=== PATIENT | female | born 1965 | race African-American/Black ===

== ENCOUNTER 2017-02-26 07:56 | Day surgery (SDC) | payer OTHER ==
[~2017-02-26] VITALS: Ht 167.6 cm; Wt 79.4 kg
[2017-02-26] MEDS ORDERED: ASPI-1159 PO (09:41)
[2017-02-26] MEDS ORDERED: IOHEXOL-300 100 ML BOTTLE ONE (12:57)
[2017-02-26] MEDS ORDERED: FENTANYL CITRATE/PF 50MCG/ML 2ML VIAL ONE (12:57)
[2017-02-26] MEDS ORDERED: NICARDIPINE 100MCG/ML 10ML VIAL (CATH LAB) IV ONE (12:57)
[2017-02-26] MEDS ORDERED: HEPARIN SODIUM 1,000 UNIT/1ML VIAL IV ONE (12:57)
[2017-02-26] MEDS ORDERED: NITROGLYCERIN 50MCG/ML 10ML VIAL (CATH LAB) IV ONE (12:57)
[2017-02-26] MEDS ORDERED: MIDAZOLAM HCL 2 MG/2 ML VIAL ONE ×2 (12:57→13:23)
[2017-02-26] MEDS ORDERED: LIDOCAINE HCL 1% 20ML VIAL (Pyxis) INJ ONE (12:58)
[2017-02-26] MEDS ORDERED: HEPARIN 1,000 UNITS PREMIX 0 ML IV ONE (12:58)
[2017-02-26] MEDS ORDERED: HYDROMORPHONE HCL/PF 2MG/ML (OR) ONE (13:09)
== END 2017-02-26 17:20 | disposition home or self-care (01) ==
LOC: CCL 07:56
PROVIDERS: ATTEND Specialist
DX: I20.9 Angina pectoris, unspecified (principal); I10 Essential (primary) hypertension; E78.5 Hyperlipidemia, unspecified; Z86.73 Personal history of transient ischemic attack (TIA), and cerebral infarction without residual deficits; Z88.6 Allergy status to analgesic agent; Z88.8 Allergy status to other drugs, medicaments and biological substances
CPT/HCPCS: 93458; C1769; C1887; C1893; J1170; J1644; J2250; J3010; J3490; Q9967